=== PATIENT | female | born 1980 | race Caucasian/White ===

== ENCOUNTER → 2018-09-27 14:47 | Outpatient (CLI) | payer OTHER, MEDICAID, SELFPAY ==
--- NOTE | 2018-09-27 | DI.US.S_ITS ---
PROCEDURE: US THYROID INDICATIONS: THYROID NODULE TECHNIQUE: Real-time scanning was performed of the thyroid gland, with image documentation. COMPARISON: None. FINDINGS: Right: Thyroid lobe measures 4.0 x 1.3 x 1.4 cm, and is homogeneous in echotexture. Left: Thyroid lobe measures 4.7 x 2.5 x 2.5 cm, and is homogenous in echotexture. Isthmus: 2.0 mm thick. Nodule number: 1 Location: Left mid Size: 3.8 x 2.1 x 2.1 cm. Composition: Solid Echogenicity: Mildly hyperechoic Shape: Wider than tall Margins: Smooth Echogenic foci: Macrocalcifications Total points: 4 ACR TI-RADS category: Moderately suspicious IMPRESSION: Moderate suspicious left thyroid nodule. Recommend sonographically guided fine needle aspiration. ACR TI-RADS definitions and recommendations: TI-RADS 1 (benign): 0 points. FNA not needed. TI-RADS 2 (not suspicious): 2 points. FNA not needed. TI-RADS 3 (mildly suspicious): 3 points. * FNA if 2.5 cm or larger, follow up if 1.5 cm or larger (at 1, 3, and 5 years). TI-RADS 4 (moderately suspicious): 4-6 points. * FNA if 1.5 cm or larger, follow up if 1 cm or larger (at 1, 2, 3, and 5 years). TI-RADS 5 (highly suspicious): 7 points or more. * FNA if 1 cm or larger, follow up if 0.5 cm or larger (every year for 5 years). Dictated by: Juan TOPETE Interpreted: Zain Santos MD on 09/27/2018 at 15:48 Approved by: Zain Santos M.D. on 09/27/2018 at 16:25
== END ==
PROVIDERS: PCP Internal Medicine; Visit Provider Internal Medicine
DX: E04.1 Nontoxic single thyroid nodule (principal)
CPT/HCPCS: 76536

== ENCOUNTER → 2018-11-01 08:50 | Outpatient (CLI) | payer OTHER, MEDICAID, SELFPAY ==
--- NOTE | 2018-11-01 | PATH_ITS ---
Note [facility] Accession Number: [id number] TESTS RESULT FLAG UNITS REF RANGE LAB Clinician Provided Cytology Information No. of containers..01 ThinPrep Vial No. of containers..12 Previously Prepared Cytology Slide 01 LEFT THYROID NODULE DIAGNOSIS: 02 LEFT THYROID NODULE INCONCLUSIVE. BETHESDA CATEGORY III. ATYPIA OF UNDETERMINED SIGNIFICANCE. FOLLICULAR CELLS, PREDOMINANTLY BENIGN, WITH FOCAL CYTOLOGIC ATYPIA. COMMENT: A repeat aspirate after an appropriate interval of observation might be helpful, if clinically indicated. Pathologist ICD10: 02 R89.6, E04.1 01 1.9CM CALCIFIED LEFT THYROID NODULE 02 Minal Loya MD, Pathologist NPI- [id number] Maria R Culver, Cook Fry ([facility]) 01 30 CC, RED, CLEAR RECEIVED: 6 ALCOHOL FIXED AND 6 AIR-DRIED SLIDES WITH 1 RNA VIAL FOR FURTHER TESTING. /VDU FLAG LEGEND: L-Low Normal,H-High Normal,LL-Alert Low,HH-Alert High <-Panic Low,>-Panic High,A-Abnormal,AA-Critical Abnormal Performed at: 01 =Z [facility] [address], [place] [address] Alberto Day MD, 02 [facility] [address] [place] [id number] Darcie Sanchez MD, Performed at: [address] [facility] [address] [facility], [place], [place] [id number] MD Alberto Day MD Phone: [phone]
--- NOTE | 2018-11-01 | DI.US.S_ITS ---
PROCEDURE: US FINE NEEDLE ASPIRATION INDICATIONS: LEFT THYROID NODULE TECHNIQUE: The indications, alternatives, benefits, risks, and complications of the procedure were explained to the patient. Written informed consent was obtained and placed in the chart. The thyroid region was examined sonographically and a site was chosen for ultrasound guided percutaneous sampling. The skin was prepared and draped in the usual fashion, and anesthetized with 1% lidocaine infiltrated from the skin down to the thyroid gland. Multiple passes were then performed, with contents emptied into an appropriate pathology specimen container. A bandage was applied to the area of access at completion of the study. COMPARISON: None. FINDINGS: Location(s) of lesion(s) sampled: Left thyroid lobe dominant nodule Eitzen: 25 gauge hypodermic needles. Number of passes: 7 Medications: 1% lidocaine for local anaesthesia. Complications: None. IMPRESSION: Successful ultrasound-guided thyroid nodule fine needle aspiration, with cytology results pending. Please see chart below for management recommendations based on cytology results. [facility] ReportingRecommendationsNon-diagnostic* Repeat US-guided FNA, with on-site cytology evaluation if possible. * Repeated non-diagnostic nodules without high suspicion US features: close observation vs surgical consult. * Consider surgery if nodule has high suspicion US features, grows >20% in 2 dimensions on followup, or patient has clinical risk factors for malignancy. Benign* If nodule has high suspicion US features: repeat US and FNA within 12 months. * If nodule has low to intermediate suspicion US features: repeat US at 12-24 months. If nodule grows (20% increase in at least 2 dimensions, with minimal increase of 2 mm or >50% change in volume), or development of new suspicious US features, then repeat FNA or continue followup. * If nodule has very low suspicion US features: followup US at >24 months. Atypia of undetermined significance, follicular lesion of undetermined significanceRepeat FNA, molecular testing, followup US, or surgical consult.Follicular neoplasm, suspicious for follicular neoplasmSurgical consult; also consider molecular testing. Suspicious for malignancySurgical consult.MalignantSurgical consult. Dictated by: Lopez Mayfield M.D. on 11/01/2018 at 11:16 Approved by: Lopez Mayfield M.D. on 11/01/2018 at 11:17
== END ==
PROVIDERS: PCP Internal Medicine; Visit Provider Internal Medicine
DX: E04.1 Nontoxic single thyroid nodule (principal)
CPT/HCPCS: 10005

== ENCOUNTER → 2018-11-17 09:01 | Outpatient (CLI) | payer OTHER, MEDICAID, SELFPAY ==
[2018-11-17 09:27] LABS: Hemoglobin A1C% w Est Avg Glu 5.2 % (4.0-6.0)
[2018-11-17 09:55] LABS: Cholesterol 151 mg/dL (140-199); HDL Cholesterol 62 mg/dL (40-60); LDL Cholesterol Calculated 81 mg/dL (<100); Triglycerides 42 mg/dL (35-150)
== END ==
PROVIDERS: PCP Internal Medicine; Visit Provider Registered Nurse
DX: F31.9 Bipolar disorder, unspecified (principal); Z79.899 Other long term (current) drug therapy
CPT/HCPCS: 36415; 80061; 83036

== ENCOUNTER → 2018-12-11 14:17 | Outpatient (CLI) | payer OTHER, MEDICAID, SELFPAY ==
[2018-12-11 15:29] LABS: Free T4, Direct Thyroxine 0.84 ng/dL (0.78-2.19)
== END ==
PROVIDERS: PCP Internal Medicine; Visit Provider Specialist
DX: E07.89 Other specified disorders of thyroid (principal)
CPT/HCPCS: 36415; 84439; 84443

== ENCOUNTER 2019-01-15 10:20 | Day surgery (SDC) | payer OTHER, MEDICAID, SELFPAY ==
[2019-01-11 14:39] VITALS: BMI 22.8
[2019-01-15] VITALS (12 sets, daily range): BP systolic 114–136; BP diastolic 64–86; PULSE 79–101; RESP 14–18; TEMP 36.6–37.4; O2SAT 93–100; BMI 23.2
--- NOTE | 2019-01-15 | PATH_ITS ---
[facility] Accession Number: [id number] . 01 Material submitted: . thyroid gland - LEFT LOBE OF THYROID AND ISTHMUS . 02 Diagnosis: Thyroid, Left Lobe and Isthmus, Hemithyroidectomy and Isthmusectomy: Dominant colloid nodule. Changes consistent with prior procedure. No evidence of neoplasia. MRV 01/17/2019 1319 Local . 02 Electronically signed: . Darcie Sanchez MD, Pathologist NPI- [id number] . 01 Gross description: . Received in formalin, labeled left lobe of thyroid + isthmus, weighs 12 grams, and consists of a left thyroid lobe (3.7 x 2.3 x 1.7 cm) and isthmus (2.8 x 0.7 x 0.3 cm). The capsule is red-brown smooth and dull. The cut surface is variegated and solid cystic containing red-brown and clear colorless fluid. A minimal amount of normal thyroid parenchyma is identified. The anterior surface is inked purple and the posterior is orange. Section code: (A1) superior pole, perpendicular; (A2-A9) left lobe, serially sectioned and entirely submitted superior to inferior; (A10) inferior pole, perpendicular; (A11-A12) isthmus, serially sectioned and entirely submitted left to right. Specimen entirely submitted. ([id number]) /MRV 01/16/2019 1533 Local . 02 Pathologist provided ICD-10: E04.1 . 02 CPT . 726389 Performed at: 01 [facility] [address] [place] [address], [place], [place] [id number] MD Alberto Day MD Phone: [phone] Performed at: 02 [facility] [place] [address] [place] [id number] MD Darcie Sanchez MD Phone: [phone]
[2019-01-15] MEDS: LACTATED RINGERS 1,000 ML 100 ML IV ×2 (11:02→13:13)
--- NOTE | 2019-01-15 12:39 | PM.HP.1 ---
History of Present Illness History of Present Illness Date Patient Seen: 01/15/19 Time Patient Seen: 12:10 Chief complaint: *OPB* [id number] Narrative: Patient is a woman with a mass in her left thyroid. Initial FNA showed atypia in the normal course of events with present recommendations is to repeat the FNA after. Time. Patient does not want to do that. She just wants to have it removed. She does not want there to be any question. 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) PTSD (post-traumatic stress disorder) (Acute) Schizo affective schizophrenia (Acute) Surgical History Hx of section (Acute ~2007) Hx of removal of cyst (Acute) S/P thyroid biopsy (Acute 11/01/18) Family & Social History Social History: household members spouse Tobacco & Substance use: Smoking Status Never smoker alcohol intake never Substance Use Type former substance user Meds Home Medications and Allergies Home Medications Medication Instructions Recorded Confirmed Type fluoxetine 20 mg capsule 30 mg PO DAILY 12/06/18 01/15/19 History prazosin 2 mg capsule 2 mg PO BEDTIME 12/06/18 01/15/19 History buspirone 5 mg PO BID-TID PRN 01/15/19 01/15/19 History Allergies Allergy/AdvReac Type Severity Reaction Status Date / Time ibuprofen AdvReac vomited Verified 01/15/19 10:39 blood Review of Systems Review of Systems ROS Unobtainable: All systems reviewed & are unremarkable except as noted in HPI and below Exam Vital Signs (past 8 hours): - 01/15/19 10:47 Temperature 99.4 F Pulse Rate 79 Respiratory Rate 16 Blood Pressure 132/77 Pulse Oximetry 100 Oxygen Delivery Method Room Air Narrative Exam Narrative: No apparent distress. Palpable mass left thyroid. Neck is thin. No nodes felt the neck or supraclavicular areas. Lungs clear to auscultation without rales or rhonchi. Heart regular rate and rhythm without murmur gallop. Alert and oriented x3. Speech rate and content are appropriate. Assessment & Plan Assessment & Plan narrative: Patient with a left thyroid mass for a left lobectomy in isthmusectomy. I have discussed the operation including risks of bleeding infection scar voice changes nerve injuries. She appears to understand wishes to proceed.
--- NOTE | 2019-01-15 12:42 | PM.PREOP ---
Pre-operative Note Interval Note History & Physical reviewed/Exam performed by Physician: Yes Changes to H&P: No
[2019-01-15] MEDS: CEFAZOLIN 2 GM/100 ML FROZ.PIGGY IV (12:46)
--- NOTE | 2019-01-15 12:49 | SUR.OPER ---
Beach chair on padded OR bed. Head on gel donut secured. bilateral arms on padded arm board.secured at sides. Pillow under knees. Safety belt at thigh. Cloth tape over blanket over lower legs.
[2019-01-15] MEDS: BUPIVACAINE 0.5% (PF) VIAL 30 ML INJ (15:13)
--- NOTE | 2019-01-15 15:28 | PM.OP.1 ---
Operative Date/Time/Diagnoses Date of procedure: 01/15/19 Time of procedure: 15:28 Pre-op diagnosis: Left thyroid mass. Atypia on FNA. Post-op diagnosis: same Procedure & Clinicians Procedure: Left thyroid lobectomy and isthmusectomy. Same procedure as scheduled: Yes Indications: Mass left neck. Patient did not desire any count of observation. Simply wanted it removed. Surgeon: Víctor Pittman Corporate Travel Coordinator: Jhonny Whittaker Anesthesia Type: General Operative Notes Findings: Rather small left thyroid lobe. Closure Type: primary Specimen(s): other (Left thyroid lobe and isthmus) Prosthetic devices, grafts, tissues, transplants, or devices: None Estimated Blood Loss (mL): 10 Blood products transfused: none Procedure in detail: Patient was placed supine on the operating room table underwent general endotracheal anesthesia. She was then placed in beach chair position and prepped and draped in the usual fashion. A transverse incision was made low in her neck. She has no real wrinkles or skin creases. It was carried down to the level the strap muscles. The strap muscles were opened in the midline from the sternal notch to the thyroid cartilage. The strap muscles were dissected off the surface of the gland and the gland was rotated medially. Almost all the attachments were quite flimsy posteriorly. With were I would have expected to find a significant amount of tissue in the lower lobe there was none. The dissection was carried to the superior pole and attachments right on the surface of the gland were divided. The gland was rotated medially. I did not encounter any major vascular structures that is no superior pole arteries. This may be because I took everything well down on the gland itself. In any event once I divided the attachments of the superior pole the gland rotated easily medially and the tissue extending toward location the middle thyroid vein and the tracheoesophageal groove was identified. I attempted to find the nerve but frankly, the tissue where it would be expected was actually well way from the rotated thyroid. The thyroid gland was quite small. We identified a possible nerve and carefully preserved it. But basically we stayed on the thyroid as a came up over the trachea. The attachments were flimsy and only major 1 was the middle thyroid vein which was divided. The gland was easily rotated medially and the isthmus identified and divided with a Harmonic scalpel. There had been very little bleeding throughout the operation. The wound was irrigated and there was no significant bleeding at completion. We had maintain meticulous hemostasis throughout. The strap muscles were closed in the midline with interrupted [id number] 3 0 Vicryl. The subcu was closed with interrupted 3 0 Vicryl. The skin was closed running 4 0 Vicryl subcuticular stitch and a few 6 0 nylon interrupted sutures. Steri-Strips were applied and the dressing was applied. Patient was awakened and extubated taken recovery room good condition. Complications: none Post-operative Condition: stable Disposition: PACU Plan for aftercare: To observation
--- NOTE | 2019-01-15 15:49 | SUR.PHASEI ---
Stable pacu stay, arrived with airway, airway out soon after. Denied pain, voice and swallow strong, no nausea tolerated ice chips . Report called to RADHA Marquez.
--- NOTE | 2019-01-15 16:07 | SUR.PHASEI ---
Pt transported up to room 204 and left with Alma and left in stable condition.
[2019-01-15] MEDS: OXYCODONE IR 5 MG TABLET PO ×2 (17:04→20:29)
[2019-01-15] MEDS: LACTATED RINGERS 1,000 ML 80 ML IV (17:05)
[2019-01-15] MEDS: ONDANSETRON 4 MG/2 ML INJ IV (17:05)
--- NOTE | 2019-01-15 18:29 | PC.NURSE ---
Addendum entered by Lisbeth Caraballo R.N. 01/15/19 21:42: Relatively uneventful evening. Med @ 2100 for discomfort. IVF continue as per orders. Stable post op course. Call light w/in reach, bed alarm on for pt safety. Continune w/plan of care. Original Note: Pt arrived at 1600 from PACU Alert/oriented. Oriented to room ans call system. Anterior dsg CDI Med @ 1700 w/oxycodone w/good relief. IVF of LR @ 80cc/hr infusing via pump w/o incidence Trach box in room Call light w/in reach, bed alarm on for pt safety.
[2019-01-15] MEDS: GABAPENTIN 300 MG CAPSULE PO (20:29)
--- NOTE | 2019-01-15 23:35 | PC.NURSE ---
Pt weight is 69.0kg.
[2019-01-16] MEDS: OXYCODONE IR 5 MG TABLET PO ×3 (00:49→08:24)
[2019-01-16 04:05] VITALS: BP 102/56; PULSE 78; RESP 17; TEMP 36.6; O2SAT 93
--- NOTE | 2019-01-16 04:59 | PC.NURSE ---
Patient requested to stop intravenous fluids at 0430, stating that they were causing an increase in frequency with urination and it was interrupting her sleep.
--- NOTE | 2019-01-16 07:31 | PM.PNPO.1 ---
Subjective Subjective Date Patient Seen: 01/16/19 Time Patient Seen: 07:32 Interval history: No acute overnight events. Patient tolerated a diet without issue. No issues with speech or swallowing. Pain is well controlled with oral narcotics. Exam Vital Signs (past 8 hours): - 01/15/19 23:40 01/16/19 04:05 Temperature 98.2 F 97.9 F Pulse Rate 84 78 Respiratory Rate 17 17 Blood Pressure 136/64 102/56 L Pulse Oximetry 93 93 Oxygen Delivery Method Room Air Oxygen Flow Rate 0 Narrative Exam Narrative: General adult female alert oriented no acute distress Neck thyroid incision with intact dressing no saturation no neck hematoma speaking with normal voice Assessment & Plan Post-op Assessment and plan (1) Thyroid mass of unclear etiology: Postoperative Procedures: Procedures Operation Date: 01/15/19 11:45 Actual Procedures Side Surgeon p Thyroid lobectomy & isthmusectomy Left Víctor Pittman MD Postoperative status narrative: 38-year-old female postoperative day 1 status post left thyroid lobectomy and isthmusectomy doing well. No evidence of post operative bleeding, voice is normal. Stable for discharge home.
--- NOTE | 2019-01-16 07:38 | P.DS_ITS ---
History of Present Illness History of Present Illness Date Patient Seen: 01/16/19 Time Patient Seen: 07:38 Chief complaint: *OPB* [id number] Narrative: This is a 38-year-old female with a left thyroid mass. She underwent needle biopsy which demonstrated cellular atypia and given the option between observation and surgical therapy she choose thyroid lobectomy. Discharge Providers Provider Discharge Date: 01/16/19 Primary care physician: GLORIA Estes Consults: 01/15/19 16:17 Consult to Discharge Planning Routine Comment: Discharge provider: Jhonny Whittaker MD Summary Hospital Course Discharge Diagnosis: Status post left thyroid lobectomy and ismthusectomy Hospital Course: Patient underwent a left thyroid lobectomy and isthmusectomy 01/15/2019. Her operation and postoperative course were unremarkable. On postoperative day 1, her voice is normal there is no neck hematoma and she is stable for discharge home. Status at Discharge Cognitive/behavioral status at discharge: oriented Functional status at discharge: independent ambulation Overall status at discharge: patient is back to baseline Time Spent with Patient Time spent: Less than 30 minutes Exam Vital Signs (past 8 hours): - 01/15/19 23:40 01/16/19 04:05 Temperature 98.2 F 97.9 F Pulse Rate 84 78 Respiratory Rate 17 17 Blood Pressure 136/64 102/56 L Pulse Oximetry 93 93 Oxygen Delivery Method Room Air Oxygen Flow Rate 0 Narrative Exam Narrative: General-no acute distress, well nourished HEENT-moist mucous membranes, no scleral icterus Neck-cervical incision dressing intact without saturation or drainage. No hematoma. Chest- non labored respirations, clear to auscultation bilaterally Cardiac-regular rate no peripheral edema Abdomen-soft, nontender, non distended Extremities-warm, well perfused Neurological-alert and oriented, no focal deficits Discharge Plan Discharge Plan Patient Disposition: Home Discharge comment: Your operation went fine. You if you have any problems breathing you should come to the emergency room immediately. Discharge Med Rec/Prescriptions Prescriptions: New hydrocodone-acetaminophen [[place]] 5-325 mg tablet 1 tab PO Q4H PRN (Reason: painful procedure) Qty: 14 RF: 0 Continued fluoxetine 20 mg capsule 30 mg PO DAILY RF: 0 prazosin 2 mg capsule 2 mg PO BEDTIME RF: 0 buspirone 5 mg Tablet 5 mg PO BID-TID PRN (Reason: Anxiety) RF: 0 Follow up/Referrals: Víctor Pittman MD [Physician] - As previously scheduled (If you do not have a follow-up appointment please call my office and make 1 for about 7-10 days from now. If you need to reach a doctor about a problem in it is after hours please call our office and listen to the entire message. At the end you will be connected to our page dough machine operator who will page the doctor on-call. If you have a problem that does not seem to be life-threatening please call our office before going to the emergency room as your postoperative care is included in your surgical care.) Montserrat Bustos ARNP [Primary Care Provider] - Discharge Orders: Discharge (Order); Ordered 01/16/19 Ordered By: Víctor Pittman Provider Discharge Instructions Diet: Diet as Tolerated Activity: Avoid vigorous use of her neck but you should use it normally turning from side to side. Do not drive into her pain-free off medication. Skin/Wound/Dressing Care Report to your healthcare provider any signs of infection, such as:: increased pain, unusual drainage and unusual redness Dressing: You may remove the dressing in 2 days and shower. Leave the tape which is under the gauze fall off on its own. Visit Report/Discharge Packet Instructions: DI for Thyroidectomy Discharge Data Primary Care Provider: Montserrat Bustos Attending Provider: Víctor Pittman
[2019-01-16 08:15] VITALS: BP 114/68; PULSE 81; RESP 16; TEMP 36.8; O2SAT 95
[2019-01-16] MEDS: FLUoxetine 10 MG CAPSULE 30 MG PO (08:20)
[2019-01-16] MEDS: BUSPIRONE 5 MG TABLET PO (08:21)
[2019-01-16] MEDS: GABAPENTIN 300 MG CAPSULE PO (08:24)
[2019-01-16] MEDS: INFLUENZA VACCINE 0.5 ML SYRINGE IM (08:25)
--- NOTE | 2019-01-16 08:44 | PC.NURSE ---
Day shift: Pt left unit via WC to private car driven by spouse. WC driven by JAMES Monique. Paperwork signed and all questions answered. Pt has all personal belongings. Pt also has MD baldwin. Dressing anterior neck is CDI 4x4 gauze and tegaderm.
--- NOTE | 2019-01-16 12:32 | CM.DANOTE ---
DCP/Assessment: Reviewed chart. Patient is a 38yr old female [place] [facility] [place] [facility] [place] performed by Dr. Pittman. PCP is Montserrat Bustos. Primary payor is 1)[employer] 2)Medicaid. Attempted to meet with patient prio to noon. RN reports that patient discharged around 9:00AM today without any d/c planning needs. P: Home today. STEFANIE Miranda Discharge Planning/Care Management CM Discharge Assessment Start: 01/16/19 12:28 Freq: Status: Active Protocol: Document 01/16/19 12:28 KJS (Rec: 01/16/19 12:32 KJS [id number]) Discharge Planning Assessment Assigned Kier Hand STEFANIE Miranda Contact Information Joe Hurd (spouse) Advance Directives? No History Provided By Patient,Medical Record Prior Living Arrangements Mobile home Household Members spouse Type of transporation used prior to Drives own vehicle admit Independent with ADL's Yes Is patient alert and oriented? Yes Barriers to Discharge No Discharge Plan Home Review Status In Process Next Review Type Continued Stay Review Pre-Anesthesia Assessment Start: 01/11/19 14:39 Freq: Status: Discharge Protocol: Document 01/11/19 14:39 CAB (Rec: 01/11/19 14:51 CAB [id number]) Pre-Anesthesia Assessment Patient Information Reviewed Via Chart Review Primary Care Provider Montserrat Bustos Seen Specialist in Last 12 Months Yes Specialist Seen General surgeon Primary Language [place] Electoral Officer Required No Height 172.72 cm Weight 68.039 kg Body Mass Index (BMI) 22.8 Hearing Ability Normal Dentition Type Teeth, Natural Present,Teeth, Missing Comment hx of schizophrenia Hx Anesthesia Reactions No Hx Family Anesthesia Reaction No Hx Malignant Hyperthermia No Hx Blood Transfusions No Anesthesia Review Requested No alcohol intake never Smoking Status Never smoker Substance Use Type former substance user Comment Denies drugs since 06/17/18 Pain Present Pain Reported History of Falling (Recent or History of No ) Patient is completely paralyzed or No completely immobile Mental Status Oriented to own ability Is patient on oxygen? No Does patient have VINCENT/SOB No Hx Sleep Apnea No Currently Taking a Beta Tye No Can You Climb a Flight of Stairs Without Yes SOB Hx Chest Pain No Hx SOB No Hx Syncope or Dizziness No Anti-Coagulant Therapy No Has a Gyn No Cardiac Testing No Hx Pacemaker/ICD No Pacemaker Rep Required? No Cardiac Clearance Received Not Applicable dysphagia No Urinary Catheter Present No Hx Urinary Self Catheterization No Diabetes No Lactating No Hx Drug Resistant Organism No Presence of External or Internal Medical No Devices Marital Status Lives With spouse Patient Discharge Plan Description Return Home
== END 2019-01-16 08:47 | disposition home or self-care (01) ==
LOC: OR 10:22 → AC 16:24
PROVIDERS: PCP Internal Medicine; Visit Provider Specialist
PROC: (CPT 60210; principal; 2019-01-15 11:45)
DX: E04.1 Nontoxic single thyroid nodule (principal); Z23 Encounter for immunization
CPT/HCPCS: 60210; 90471; 90656; J0330; J0690; J1100; J2250; J2405; J2704; J3010; Q2038

== ENCOUNTER → 2019-07-31 15:16 | Outpatient (CLI) | payer OTHER, MEDICAID, SELFPAY ==
[2019-01-15 16:48] VITALS: BMI 23.2
[2019-07-31 15:47] LABS: Add Manual Diff / Slide Review NO; Basophils Absolute Auto 0 /uL (0-100); Basophils Percent Auto 0.4 % (0-2); Eosinophils Absolute Auto 0 /uL (0-450); Eosinophils Percent Auto 0.2 % (2-4); Hematocrit 33.1 % (36-46); Hemoglobin 10.6 g/dL (12.0-16.0); Lymphocytes Absolute Auto 1900 /uL (1100-4500); Lymphocytes Percent Auto 28.1 % (25-40); Mean Corpuscular HGB Conc 32.2 % (30-36); Mean Corpuscular Hemoglobin 24.6 PG (26-34); Mean Corpuscular Volume 76.5 fL (80-100); Monocytes Absolute Auto 600 /uL (0-900); Neutrophils Absolute Auto 4300 /uL (1500-7000); Neutrophils Percent Auto 62.3 % (50-75); Platelet Count 401 X10^3/uL (150-400); Red Blood Cell Count 4.32 X10^6/uL (4.0-5.2); Red Cell Distribution Width 17.8 % (11.6-14.8); White Blood Cell Count 6.9 X10^3/uL (4.5-11.0)
== END ==
PROVIDERS: PCP Internal Medicine; Referring Provider Internal Medicine; Visit Provider Internal Medicine
DX: D64.9 Anemia, unspecified (principal); Z90.89 Acquired absence of other organs
CPT/HCPCS: 36415; 84443; 85025